=== PATIENT | female | born 1995 | race Caucasian/White ===

== ENCOUNTER 2019-12-23 11:30 | Emergency (ER) | payer OTHER ==
[2019-12-23] MEDS ORDERED: LIDOCAINE 1% MPF 5 ML VIAL ONE (12:06)
[2019-12-23] MEDS ORDERED: BUPIVACAINE 0.5% PF 10 ML VIAL ONE (12:06)
[2019-12-23] MEDS ORDERED: TETANUS & DIPHTHERIA TOX,ADULT 0.5 ML VIAL ONE (12:07)
[2019-12-23] MEDS ORDERED: HYDROCODONE/APAP 5/325 MG TAB ONE (12:35)
[2019-12-23 13:10] VITALS: O2SAT 100
[2019-12-23 13:12] VITALS: BP 131/72; TEMP 98.9
--- NOTE | 2019-12-30 12:10 | EDPHYS ---
Physician Documentation [facility] Name: Angelita Gauthier Age: 24 yrs Sex: Female : 1995 Arrival Date: 12/23/2019 Time: 11:34 Bed 15 Private MD: ED Physician Bruno Fajardo HPI: 12/22 11:57 This 24 yrs old Female presents to ER via Ambulatory with complaints of Cyst. pm1 11:57 The patient presents with an abscess of the buttocks. Onset: The symptoms/episode pm1 began/occurred 3 day(s) ago. Possible cause(s): unknown. Associated signs and symptoms: Pertinent positives: drainage, Pertinent negatives: fever. Modifying factors: the symptoms are aggravated by sitting, touching. Severity of symptoms: in the emergency department the symptoms are actually worse. The patient has not experienced similar symptoms in the past. The patient has not recently seen a physician. 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 - Social history:: Smoking status: Patient denies any tobacco usage or history of. ROS: 11:57 Constitutional: Negative for fever, chills, and weight loss, Cardiovascular: Negative pm1 for chest pain, palpitations, and edema, Respiratory: Negative for shortness of breath, cough, wheezing, and pleuritic chest pain, Abdomen/GI: Negative for abdominal pain, nausea, vomiting, diarrhea, and constipation, Back: Negative for injury and pain, MS/Extremity: Negative for injury and deformity. 11:57 Skin: Positive for abscess, of the buttocks. 11:57 All other systems are negative. pm1 Exam: 11:57 Constitutional: This is a well developed, well nourished patient who is awake, alert, pm1 and in no acute distress. 11:57 Head/Face: Normocephalic, atraumatic. Neck: Trachea midline, no thyromegaly or masses pm1 palpated, and no cervical lymphadenopathy. Supple, full range of motion without nuchal rigidity, or vertebral point tenderness. No Meningismus. Chest/axilla: Normal chest wall appearance and motion. Nontender with no deformity. No lesions are appreciated. 11:57 Abdomen/GI: Soft, non-tender, with normal bowel sounds. No distension or tympany. No guarding or rebound. No evidence of tenderness throughout. Back: No spinal tenderness. No costovertebral tenderness. Full range of motion. 11:57 Cardiovascular: Exam negative for acute changes, Rate: normal, Rhythm: regular. 11:57 Respiratory: Exam negative for acute changes, respiratory distress, shortness of breath. 11:57 Skin: Appearance: normal except for affected area, abscess, that is small, approximately 2 cm(s), of the gluteal cleft, with drainage, with fluctuance, surrounding cellulitis absent. Vital Signs: 11:37 BP 143 / 77; Pulse 87; Resp 16; Temp 99.2(TE); Pulse Ox 100% on R/A; Weight 81.65 kg; hb Height 5 ft. 7 in. (170.18 cm); Pain 4/10; 12:33 BP 131 / 72; Pulse 79; Resp 16; Temp 98.9; Pulse Ox 100% ; bp 11:37 Body Mass Index 28.19 (81.65 kg, 170.18 cm) hb Procedures: 12:27 I \T\ D: Incision and drainage was performed for an abscess of the pilonidal cyst Prepped pm1 with Betadine, Anesthetized with 5 ml's 1% Lidocaine. marcaine. Incised with #11 blade. Drained small amount purulent fluid. Packed with iodoform gauze, the patient tolerated the procedure well. MDM: 11:40 Patient medically screened. pm1 12:27 Data reviewed: vital signs. Data interpreted: Pulse oximetry: on room air is 100 %. pm1 Interpretation: normal. Counseling: I had a detailed discussion with the patient and/or guardian regarding: the historical points, exam findings, and any diagnostic results supporting the discharge/admit diagnosis, the need for outpatient follow up, for definitive care, a general surgeon, to return to the emergency department if symptoms worsen or persist or if there are any questions or concerns that arise at home. 12/22 11:57 Order name: Wound Culture pm1 12/22 11:56 Order name: Incision \T\ Drainage Setup; Complete Time: 12:04 pm1 Administered Medications: 12:03 Drug: Marcaine (0.5 %) 10 ml {Note: AT B/S.} Volume: 10 ml; Route: Infiltration; bp 12:04 Drug: Tetanus-Diphtheria Toxoid Adult 0.5 ml {Engine Head Repairer: Funding Profiles. Exp: bp 09/13/2021. Lot #: [id number]. } Route: IM; Site: right deltoid; 12:31 Follow up: Response: No adverse reaction bp 12:04 Drug: Lidocaine (1 %) 5 ml {Note: AT B/S.} Volume: 5 ml; Route: Infiltration; bp 12:31 Drug: [place] 5 mg-325 mg 1 tabs Route: PO; bp 12:31 Follow up: Response: Medication administered at discharge. bp Disposition: 18:09 Co-signature as Attending Physician, Bruno Fajardo MD. rn Disposition: 12/23/19 12:28 Discharged to Home. Impression: Pilonidal sinus with abscess. - Condition is Stable. - Discharge Instructions: Incision and Drainage, Pilonidal Cyst. - Prescriptions for Tylenol- Codeine #3 300-30 mg Oral Tablet - take 2 tablets by ORAL route every 6 hours As needed; 20 tablet. Bactrim DS 800- 160 mg Oral Tablet - take 1 tablet by ORAL route every 12 hours for 10 days; 20 tablet. - Medication Reconciliation Form, Thank You Letter, Antibiotic Education, Prescription Opioid Use form. - Follow up: Emergency Department; When: As needed; Reason: Worsening of condition. Follow up: Private Physician; When: 2 - 3 days; Reason: Recheck today's complaints, Continuance of care, Re-evaluation by your physician. - Problem is new. - Symptoms have improved. Signatures: Dispatcher [employer] EDBruno Zazueta MD MD rn Marinas, Patrick, [employer] pm1 Tahira Romero RN RN hb Peltier, Brian, RN RN bp Corrections: (The following items were deleted from the chart) 13:03 12:28 12/23/2019 12:28 Discharged to Home. Impression: Pilonidal sinus with abscess. bp Condition is Stable. Forms are Medication Reconciliation Form, Thank You Letter, Antibiotic Education, Prescription Opioid Use. Follow up: Emergency Department; When: As needed; Reason: Worsening of condition. Follow up: Private Physician; When: 2 - 3 days; Reason: Recheck today's complaints, Continuance of care, Re-evaluation by your physician. Problem is new. Symptoms have improved. pm1
--- NOTE | 2019-12-30 12:10 | ER ---
Nurse's Notes [facility] Name: Angelita Gauthier Age: 24 yrs Sex: Female : 1995 Arrival Date: 12/23/2019 Time: 11:34 Bed 15 Private MD: Diagnosis: Pilonidal sinus with abscess Presentation: 12/22 11:37 Chief complaint: Abscess on tailbone x 2-3 days. Coronavirus screen: Proceed with normal triage. Ebola Screen: No symptoms or risks identified at this time. Initial Sepsis Screen: Does the patient meet any 2 criteria? No. Patient's initial sepsis screen is negative. Does the patient have a suspected source of infection? No. Patient's initial sepsis screen is negative. Risk Assessment: Do you want to hurt yourself or someone else? Patient reports no desire to harm self or others. Onset of symptoms was December 20, 2019. 11:37 Method Of Arrival: Ambulatory 11:37 Acuity: RY 4 hb Triage Assessment: 11:40 General: Appears in no apparent distress. comfortable, Behavior is cooperative, bp appropriate for age, anxious. Pain: Complains of pain in buttocks. EENT: No deficits noted. Neuro: No deficits noted. Cardiovascular: No deficits noted. Respiratory: No deficits noted. GI: No signs and/or symptoms were reported involving the gastrointestinal system. : No signs and/or symptoms were reported regarding the genitourinary system. Derm: Abscess located on buttocks. Musculoskeletal:. Musculoskeletal: No signs and/or symptoms reported regarding the musculoskeletal system. 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 - Social history:: Smoking status: Patient denies any tobacco usage or history of. Screenin:40 Abuse screen: Denies threats or abuse. Denies injuries from another. Nutritional bp screening: No deficits noted. Tuberculosis screening: No symptoms or risk factors identified. Fall Risk None identified. Assessment: 11:40 General: SEE TRIAGE NOTE. bp 13:02 Reassessment: PT D/C HOME AMBULATORY, DX WITH PILONIDAL CYST. bp Vital Signs: 11:37 BP 143 / 77; Pulse 87; Resp 16; Temp 99.2(TE); Pulse Ox 100% on R/A; Weight 81.65 kg; hb Height 5 ft. 7 in. (170.18 cm); Pain 4/10; 12:33 BP 131 / 72; Pulse 79; Resp 16; Temp 98.9; Pulse Ox 100% ; bp 11:37 Body Mass Index 28.19 (81.65 kg, 170.18 cm) hb ED Course: 11:34 Patient arrived in ED. as 11:38 Triage completed. hb 11:38 Jarrett Ferrara, [employer] is PHCP. pm1 11:38 Bruno Fajardo MD is Attending Physician. pm1 11:38 Arm band placed on. hb 11:40 Patient has correct armband on for positive identification. Bed in low position. Call bp light in reach. Side rails up X2. 11:42 Erick Rodriguez, AFUA is Primary Nurse. bp 12:32 Assist provider with I \T\ D: of an abscess on pilonidal cyst Set up I\T\D tray. Performed bp by Jarrett Ferrara NP Culture sent to lab. Wound packed. iodoform gauze, Dressing with 4X4s, Patient tolerated well. 12:34 Patient did not have IV access during this emergency room visit. bp Administered Medications: 12:03 Drug: Marcaine (0.5 %) 10 ml {Note: AT B/S.} Volume: 10 ml; Route: Infiltration; bp 12:04 Drug: Tetanus-Diphtheria Toxoid Adult 0.5 ml {Cat Scan Tech: [employer]id[employer]. Exp: bp 09/13/2021. Lot #: [id number]. } Route: IM; Site: right deltoid; 12:31 Follow up: Response: No adverse reaction bp 12:04 Drug: Lidocaine (1 %) 5 ml {Note: AT B/S.} Volume: 5 ml; Route: Infiltration; bp 12:31 Drug: [place] 5 mg-325 mg 1 tabs Route: PO; bp 12:31 Follow up: Response: Medication administered at discharge. bp Outcome: 12:28 Discharge ordered by . pm1 12:33 Discharged to home ambulatory. bp 12:33 Condition: stable 12:33 Discharge instructions given to patient, Instructed on discharge instructions, follow up and referral plans. wound care, Demonstrated understanding of instructions, follow-up care, wound care. 12:35 Prescriptions given X 2. bp 13:03 Patient left the ED. bp Signatures: Carol Santiago Patrick, NP [employer] pm1 Tahira Romero, RN RN Erick Rodriguez RN RN bp
== END 2019-12-23 13:03 | disposition home or self-care (01) ==
LOC: ER 11:30
PROC: 0H98XZZ Drainage of Buttock Skin, External Approach (ICD-10-PCS; principal; 2019-12-23)
DX: L05.01 Pilonidal cyst with abscess (principal); Z23 Encounter for immunization
CPT/HCPCS: 87070; 87205; 90471; 90714; 99284